=== PATIENT | female | born 1950 | race Caucasian/White ===

== ENCOUNTER 2017-07-11 10:13 | Outpatient (CLI) | payer MEDICARE, OTHER | END 2017-07-11 10:14 | disposition home or self-care (01) | LOC: BICMAMMO 10:13 | PROVIDERS: ATTEND Family Medicine | DX: Z12.31 Encounter for screening mammogram for malignant neoplasm of breast (principal); N63.20 Unspecified lump in the left breast, unspecified quadrant; Z80.3 Family history of malignant neoplasm of breast | CPT/HCPCS: 77067; G0202 ==

== ENCOUNTER 2017-07-25 07:57 | Outpatient (CLI) | payer MEDICARE, OTHER | END 2017-07-25 07:58 | disposition home or self-care (01) | LOC: BICMAMMO 07:57 | PROVIDERS: ATTEND Family Medicine | DX: N63.0 Unspecified lump in unspecified breast (principal); R92.2 Inconclusive mammogram | CPT/HCPCS: 76642; G0206; G0279 ==

== ENCOUNTER 2018-07-12 10:56 | Outpatient (CLI) | payer MEDICARE | END 2018-07-12 10:57 | disposition home or self-care (01) | LOC: BICMAMMO 10:56 | PROVIDERS: ATTEND Family Medicine | DX: Z12.31 Encounter for screening mammogram for malignant neoplasm of breast (principal); R92.1 Mammographic calcification found on diagnostic imaging of breast; Z80.3 Family history of malignant neoplasm of breast | CPT/HCPCS: 77063; 77067 ==

== ENCOUNTER 2019-07-13 09:46 | Outpatient (CLI) | payer MEDICARE ==
--- NOTE | 2019-07-13 10:56 | MMO ---
Bilateral MAMMO Bilat Screen [facility]. CLINICAL HISTORY: Patient is 69 years old and is seen for screening. The patient has the following family history of breast cancer: mother, LATE 50'S. The patient has no personal history of cancer. The patient has a history of left Cyst Aspiration - benign. VIEWS: The views performed were: bilateral craniocaudal with tomosynthesis and bilateral mediolateral oblique with tomosynthesis. FILMS COMPARED: The present examination has been compared to prior imaging studies performed at [facility] on 07/08/2016, 07/11/2017, 07/25/2017 and 07/12/2018. This study has been interpreted with the assistance of computer-aided detection. MAMMOGRAM FINDINGS: There are scattered fibroglandular densities. There are stable benign appearing calcifications seen in both breasts. There are no suspicious masses, suspicious calcifications, or new areas of architectural distortion. IMPRESSION: THERE IS NO MAMMOGRAPHIC EVIDENCE OF MALIGNANCY. A ROUTINE FOLLOW-UP MAMMOGRAM IN 1 YEAR IS RECOMMENDED. THE RESULTS OF THIS EXAM WERE SENT TO THE PATIENT. ACR BI-RADS Category 2 - Benign finding MAMMOGRAPHY NOTE: 1. A negative mammogram report should not delay a biopsy if a dominant of clinically suspicious mass is present. 2. Approximately 10% to 15% of breast cancers are not detected by mammography. 3. Adenosis and dense breasts may obscure an underlying neoplasm. Reported by: MAYRA ROWAN MD Electonically Signed: [id number]
== END 2019-07-13 09:47 | disposition home or self-care (01) ==
LOC: BICMAMMO 09:46
PROVIDERS: ATTEND Family Medicine
DX: Z12.31 Encounter for screening mammogram for malignant neoplasm of breast (principal); Z80.3 Family history of malignant neoplasm of breast
CPT/HCPCS: 77063; 77067

== ENCOUNTER 2020-07-14 11:18 | Outpatient (CLI) | payer MEDICARE ==
--- NOTE | 2020-07-14 13:10 | MMO ---
Bilateral MAMMO Bilat Screen [facility]. CLINICAL HISTORY: Patient is 70 years old and is seen for screening. The patient has the following family history of breast cancer: mother, LATE 50'S. The patient has no personal history of cancer. The patient has a history of left Cyst Aspiration - benign. VIEWS: The views performed were: bilateral craniocaudal with tomosynthesis and bilateral mediolateral oblique with tomosynthesis. FILMS COMPARED: The present examination has been compared to prior imaging studies performed at [facility] on 07/11/2017, 07/25/2017, 07/12/2018 and 07/13/2019. This study has been interpreted with the assistance of computer-aided detection. MAMMOGRAM FINDINGS: There are scattered fibroglandular densities. Benign calcifications are noted bilaterally. There are no suspicious masses, suspicious calcifications, or new areas of architectural distortion. IMPRESSION: THERE IS NO MAMMOGRAPHIC EVIDENCE OF MALIGNANCY. A ROUTINE FOLLOW-UP MAMMOGRAM IN 1 YEAR IS RECOMMENDED. THE RESULTS OF THIS EXAM WERE SENT TO THE PATIENT. ACR BI-RADS Category 2 - Benign finding MAMMOGRAPHY NOTE: 1. A negative mammogram report should not delay a biopsy if a dominant of clinically suspicious mass is present. 2. Approximately 10% to 15% of breast cancers are not detected by mammography. 3. Adenosis and dense breasts may obscure an underlying neoplasm. Reported by: FLORECITA PUGA MD Electonically Signed: [id number]
== END 2020-07-14 11:19 | disposition home or self-care (01) ==
LOC: BICMAMMO 11:18
PROVIDERS: ATTEND Family Medicine
DX: Z12.31 Encounter for screening mammogram for malignant neoplasm of breast (principal); Z91.89 Other specified personal risk factors, not elsewhere classified; Z80.3 Family history of malignant neoplasm of breast
CPT/HCPCS: 77063; 77067

== ENCOUNTER 2021-07-16 12:58 | Outpatient (CLI) | payer MEDICARE | END 2021-07-16 12:59 | disposition home or self-care (01) | LOC: BICMAMMO 12:58 | PROVIDERS: ATTEND Family Medicine | DX: Z12.31 Encounter for screening mammogram for malignant neoplasm of breast (principal); Z98.890 Other specified postprocedural states; Z80.3 Family history of malignant neoplasm of breast | CPT/HCPCS: 77063; 77067 ==

== ENCOUNTER 2022-07-21 12:17 | Outpatient (CLI) | payer MEDICARE | END 2022-07-21 12:18 | disposition home or self-care (01) | LOC: BICMAMMO 12:17 | PROVIDERS: ATTEND Family Medicine | DX: Z12.31 Encounter for screening mammogram for malignant neoplasm of breast (principal); R92.8 Other abnormal and inconclusive findings on diagnostic imaging of breast; R92.1 Mammographic calcification found on diagnostic imaging of breast; Z80.3 Family history of malignant neoplasm of breast; Z86.018 Personal history of other benign neoplasm | CPT/HCPCS: 77063; 77067 ==